=== PATIENT | male | born 1945 | race Caucasian/White ===

== ENCOUNTER 2016-06-06 19:22 | Emergency (ER) | payer MEDICARE, OTHER ==
[~2016-06-06 19:22] MED LIST: ALBUTEROL5 INH; AVODART PO; COMBIVENT RESPIM4 GM INH; COMBIVENT RESPIMAT I INH; COZ50 PO; FISH-EPA1000 MG PO; FLOMAX4 PO; FLONASE NAS; LIPITOR40 PO; METPAKSF PO; NORV10 PO; PLAVIX PO; PRILO PO; SPIRIVA INH; SYMBICORT 160/41 INH INH; XALAT OPH
[2016-06-06 20:33] LABS: BASOPHILS 0.6 %; BASOPHILS ABSOLUTE 0.04 10/3/uL (0.0-0.16); EOSINOPHILS 4.6 %; EOSINOPHILS ABSOLUTE 0.29 10/3/uL (0.0-0.53); ER CBC TAT 0 Hrs 08 Mins; HEMATOCRIT 49.7 % (40.0-51.0); HEMOGLOBIN 17.9 g/dL (13.6-17.8); IMMATURE GRANULOCYTES 0.2 %; IMMATURE GRANULOCYTES ABSOLUTE 0.01 10/3/uL (0.0-0.11); LYMPHOCYTES 36.5 %; LYMPHOCYTES ABSOLUTE 2.31 10/3/uL (0.67-4.30); MEAN CORPUSCULAR HEMOGLOB 33.5 pg (26.0-34.0); MEAN CORPUSCULAR VOLUME 92.9 fL (80-100); MEAN PLATELET VOLUME 10.5 fL (9.2-13.0); MONOCYTES 11.1 %; NEUTROPHILS ABSOLUTE 2.98 10/3/uL (2.02-8.40); PLATELET COUNT 170 10/3/uL (150-400); RBC DISTRIBUTION WIDTH 13.9 % (12.0-16.0); RED CELL COUNT 5.35 10/6/uL (4.7-6.1); WHITE BLOOD CELLS 6.3 10/3/uL (4.5-10.5)
[2016-06-06 20:35] LABS: PROTIME (NOT ORD) 12.8 SEC (12.0-14.5)
[2016-06-06 20:36] LABS: PARTIAL THROMBO TIME 28.5 SEC (22.5-37.2)
[2016-06-06 20:37] LABS: MANUAL DIFF NO %
[2016-06-06 20:46] LABS: BUN (BLOOD UREA NITROGEN) 12 MG/DL (6-23); CALCIUM, SERUM 8.4 MG/DL (8.5-10.4); CHEST PAIN PROFILE TAT 0 Hrs 21 Mins; CHLORIDE, SERUM 110 MMOL/L (96-112); CO2 (CARBON DIOXIDE) 22 MMOL/L (24-34); CREATININE 1.15 MG/DL (0.70-1.30); GFR AFRICAN AMERICAN 73 ML/MIN (>=60); GFR NON AFRICAN AMERICAN 63 ML/MIN (>=60); GLUCOSE, SERUM 104 MG/DL (60-99); SODIUM, SERUM 142 MMOL/L (135-148); TROPONIN I <0.02 NG/ML (<0.05)
[2016-06-06 20:48] LABS: POTASSIUM, SERUM 4.4 MMOL/L (3.5-5.3)
== END 2016-06-07 04:50 | disposition home or self-care (01) ==
LOC: ER 19:22
PROVIDERS: Emergency Medicine
DX: R51 Headache (principal); I10 Essential (primary) hypertension; F17.200 Nicotine dependence, unspecified, uncomplicated; Z85.110 Personal history of malignant carcinoid tumor of bronchus and lung; Z79.899 Other long term (current) drug therapy
CPT/HCPCS: 70450; 71020; 80048; 83735; 84484; 85025; 85610; 85730; 93005; 99285; A9270-GY